=== PATIENT | female | born 1955 | race Caucasian/White ===

== ENCOUNTER 2018-03-01 16:01 | Emergency (ER) | payer BC ==
[2018-03-01 16:16] VITALS: BP 144/88
--- NOTE | 2018-03-01 16:21 | UC ---
Skin Complaint HPI - HPI Summary HPI Summary: Tick removed an hour ago from right groin. Frequently out of doors, believes that the tick attached yesterday. - History of Current Complaint Chief Complaint: [facility] Time Seen by Provider: 03/01/18 16:20 Stated Complaint: TICK BITE Hx Obtained From: Patient Onset/Duration: Sudden Onset Skin Exposure Onset/Duration: Days Ago - 1-2 Timing: Constant Onset Severity: Mild Current Severity: Mild Pain Intensity: 0 Location: Discrete Aggravating Factor(s): Nothing Alleviating Factor(s): Other - removed tick, small part of mouthpiece remains. Associated Signs & Symptoms: Positive: Negative Related History: Other: - no history of Lyme disease or tick bites. - Allergy/Home Medications Allergies/Adverse Reactions: Allergies Allergy/AdvReac Type Severity Reaction Status Date / Time No Known Allergies Allergy Verified 03/01/18 16:16 Review of Systems Constitutional: Negative Skin: Other - tick bite, no symptoms. Eyes: Negative ENT: Negative Respiratory: Negative Cardiovascular: Other - NO history of hypertension; does regular checks. Gastrointestinal: Negative Genitourinary: Negative Motor: Negative Neurovascular: Negative Musculoskeletal: Negative Neurological: Negative Psychological: Negative Is Patient Immunocompromised?: No All Other Systems Reviewed And Are Negative: Yes PMH/Surg Hx/FS Hx/Imm Hx Previously Healthy: Yes - Surgical History Surgical History: Yes - Family History Known Family History: Positive: Other - healthy parents, mother, aged 94, with demetia - Social History Occupation: Retired Alcohol Use: None Substance Use Type: None Smoking Status (MU): Never Smoked Tobacco Physical Exam Triage Information Reviewed: Yes Appearance: Well-Appearing Vital Signs: Initial Vital Signs Temp 98.2 F 03/01/18 16:10 Pulse 70 03/01/18 16:10 Resp 16 03/01/18 16:10 BP 144/88 03/01/18 16:10 Pulse Ox 98 03/01/18 16:10 Cardiovascular: Positive: RRR, No Murmur - could not appreciate heart murmur Skin Exam: Other - erythematous patch with mild induration right groin, approx 2.5 cm diameter. Small mouthpiece still attached. Course/Dx - Course Course Of Treatment: doxy prophylactic dose. - Differential Diagnoses - Skin Complaint Differential Diagnoses: Other - tick bite - Diagnoses Provider Diagnoses: tick bite Discharge - Sign-Out/Discharge Documenting (check all that apply): Discharge/Admit/Transfer - Discharge Plan Condition: Stable Disposition: HOME Prescriptions: DOXYcycline CAP(*) [DOXYcycline 100MG CAP(*)] 2 cap PO DAILY #2 cap Patient Education Materials: Tick Bite (ED) Referrals: Maryjane Contreras MD [Primary Care Provider] - Additional Instructions: The single dose of doxycycline is about 80% effective in decreasing the risk of Lyme disease should the tick have been infected with the Lyme bacteria. Observe for symptoms over the next several weeks. - Billing Disposition and Condition Condition: STABLE Disposition: HOME
== END 2018-03-01 16:44 | disposition home or self-care (01) ==
LOC: UCCORT 16:01
DX: S30.861A Insect bite (nonvenomous) of abdominal wall, initial encounter (principal); W57.XXXA Bitten or stung by nonvenomous insect and other nonvenomous arthropods, initial encounter; Y92.9 Unspecified place or not applicable
CPT/HCPCS: 99212; G0463